=== PATIENT | female | born 1985 | race Caucasian/White ===

== ENCOUNTER 2023-06-09 16:44 | Observation (INO) | payer BC, SELFPAY ==
[2023-06-09] VITALS (22 sets, daily range): BP systolic 106–126; BP diastolic 53–85; PULSE 61–89; RESP 13–23; TEMP 36.8–37; O2SAT 98–100; BMI 36.3
--- NOTE | 2023-06-09 17:01 | EX.ED.DYSGE1 ---
HPI History of Present Illness Chief Complaint: Complaint Informant: patient Narrative Narrative: Patient presents with concerns for UTI. She had some slight burning with urination today and has an achy/burning sensation over the suprapubic area. She is approximately 6 weeks . She has not seen OB yet, but is scheduled to see [facility] group. Her blood type is a positive. She denies any bleeding with her urine today. Patient states earlier in her she had some spotting. She did have lab work done including 2 quant's that dick appropriately. She has not yet had any imaging studies. She is G1, P0, Ab0. PFSH PFS Medical History no medical history no medical history Allergy/AdvReac Type Severity Reaction Status Date / Time No Known Allergies Allergy Verified 06/09/23 16:45 Social History Smoking Status: Never smoker ROS ROS ED Constitutional Constitutional ED: Denies chills or fever(s) Eyes Eyes: Denies discharge from eye(s) ENT ENT ED: Denies discharge from eye(s), rhinorrhea or sore throat Cardiovascular Cardiovascular: Denies chest pain Respiratory/Chest Respiratory/Chest: Denies cough or dyspnea Gastrointestinal Gastrointestinal: Reports abdominal pain; Denies diarrhea, nausea or vomiting Genitourinary Genitourinary ED: Reports dysuria Musculoskeletal Musculoskeletal: Denies back pain or extremity pain Integumentary Denies Abrasions or rash Neurologic Neurologic: Denies headache(s) or weakness Psychiatric Psychiatric: Denies anxiety or depression Allergic/Immunologic Allergic/Immunologic ED: Denies lip swelling or urticaria EXAM Physical Exam Const Vital Signs: 06/09/23 16:45 Temperature 98.3 F Temperature Source Temporal Pulse Rate 72 Respiratory Rate 14 Blood Pressure 126/85 H Blood Pressure Mean 98 Pulse Ox 100 Oxygen Delivery Method Room Air Positive well nourished and well developed General Appearance ED: well developed HEENT Reports moist mucous membranes Eyes EOMs intact bilaterally Chest Wall inspection of chest normal and palpation of chest normal Resp normal respiratory effort and clear to auscultation bilaterally Cardio regular rate and regular rhythm GI GI Narrative: Very mild suprapubic tenderness. No guarding or rebound. Palpation: soft Extremity normal to inspection Neuro oriented x3 Motor Exam: strength 5/5 throughout Psych mental status grossly normal Skin no rashes or lesions noted MDM MDM MDM Narrative Medical decision making narrative: Urinalysis sent for evidence of infection. As patient does have suprapubic pain and has not had imaging, we will obtain an hCG quant to ensure appropriate progression. History & Record Review Discussion w/independent historian: Patient Lab Data Attestation: I reviewed the patient's lab results. Labs: Laboratory Results - last 24 hr 06/09/23 06/09/23 06/09/23 16:11 16:50 19:39 WBC 11.9 H RBC 3.73 L Hgb 10.5 L Hct 32.2 L MCV 86.3 MCH 28.2 MCHC 32.6 RDW Std Deviation 40.0 RDW Coeff of Addy 12.7 Plt Count 275 MPV 9.9 Immature Gran % (Auto) 0.300 Neut % (Auto) 85.0 H Lymph % (Auto) 9.0 L Johnson % (Auto) 5.2 Eos % (Auto) 0.1 Baso % (Auto) 0.4 Absolute Neuts (auto) 10.1 H Absolute Lymphs (auto) 1.07 Nucleated RBC % 0 PT 14.1 INR 1.1 APTT 22.1 L Sodium 134 L Potassium 3.5 Chloride 103 Carbon Dioxide 26.0 Anion Gap 5 BUN 8 Creatinine 0.60 Estim Creat Clear Calc 156.38 Est GFR (MDRD) Af Amer 146 Est GFR (MDRD) Non-Af 121 BUN/Creatinine Ratio 13.4 Glucose 101 Calcium 8.9 HCG, Quant 69926 H Urine Color Yellow Urine Clarity Clear Urine pH 5.0 Ur Specific [place] 1.030 Urine Protein 30 H Urine Glucose (UA) Normal Urine Ketones 150 A* Urine Occult Blood 10 H Urine Nitrite Negative Urine Bilirubin Negative Urine Urobilinogen 1 H Ur Leukocyte Esterase Negative Urine RBC 0-5 SEEN Urine WBC 0 SEEN Ur Squamous Epith Cells 0-5 SEEN Urine Bacteria 1+ Urine Mucus 1+ Treatment and Re-Evaluation :: Urinalysis did not show significant infection with only 1+ bacteria, 0-5 epithelial cells, and 0 white cells. 150 ketones are noted. Quant is 30,925. Patient was sent for ultrasound. We received a phone call from the [facility] stating the patient had a live ectopic in the right fallopian tube. Free fluid is noted. IV line is established. Test results are discussed with patient and at bedside. Additional lab work is drawn. Patient did have blood work for this performed at [facility], ordered by NURSE STAFF INDUSTRIAL but has not seen a provider yet. In light of this I did go ahead and speak with [facility] on-call, Christiana Skinner who then contacted the physician. Dr. Westfall presented to the emergency room to see the patient. Plan will be go to OR for surgical treatment. Discharge Plan Triage Chief Complaint: Complaint ED Provider: Haylie Mena Dx/Rx/DC Orders Clinical Impression: Ectopic Primary Care Provider: Wen Tanner NP Referrals: Wen Tanner STEAM ROOM ATTENDANT, STEAM ROOM ATTENDANT-C [Primary Care Provider] - Disposition Disposition: Acute Care Hospital [facility]
[2023-06-09 17:18] LABS: White Blood Cells 0 SEEN /hpf (0-5)
[2023-06-09 17:31] LABS: Color, Urine Yellow (Yellow); Glucose, Dipstick Normal (Normal); Leukocyte Esterase-Dipstick Negative /ul (Negative); Nitrite-Dipstick Negative (Negative); Occult Blood-Urine 10 /ul (Negative); Protein-Dipstick 30 mg/dl (Negative); Urine Bilirubin Dipstick Negative (Negative); Urine Clarity Clear (Clear); Urine Urobilinogen 1 mg/dl (Normal)
[2023-06-09 17:52] LABS: Ketone-Dipstick 150 mg/dl (Negative)
[2023-06-09 18:05] LABS: Bacteria 1+ /hpf (None Seen); Mucous, Urine 1+ /hpf (<or=2+)
[2023-06-09 18:06] LABS: Red Blood Cells-Urine 0-5 SEEN /hpf (0-5); Squamous Epithelial Cells - UA 0-5 SEEN /hpf (5-10)
[2023-06-09 18:21] LABS: hCG Titer Quant., Serum 30925 mIU/mL (1-3)
--- NOTE | 2023-06-09 18:34 | US_ITS ---
STUDY: FIRST TRIMESTER OBSTETRICAL ULTRASOUND REASON FOR EXAM: Female, 38 years old pelvic pain LMP: 04/21/2023. TECHNIQUE: Transvaginal TECHNICAL QUALITY: Adequate. PRIOR ULTRASOUND: None. FINDINGS: There is no demonstrated intrauterine gestational sac. There is no demonstrated intrauterine embryo ( pole). The estimated gestation age (EGA) by LMP is 7 weeks, 0 days. The estimated date of delivery (GENNA) by LMP is 01/26/2024. The estimated gestation age (EGA) by US is 6 weeks, 2 days. The estimated date of delivery (GENNA) by US is 01/31/2024. The uterus measures 8.3 x 5.3 x 4.5 cm. There is no demonstrated uterine fibroid. The cervix is closed. The right ovary measures 4.4 x 2.6 x 3.4 cm. At the level of the right adnexa there is a complex mass measuring 4.4 x 3.2 x 2.3 cm with cystic component, and questionable pole with a detected cardiac activity 157 BPM concerning for ectopic . The pole measures 0.43 cm corresponding to 6 weeks and 2 days. There is a yolk sac measuring 2.7 mm. There is moderate to large amount of complex free fluid within the posterior cul-de-sac and surrounding the bilateral adnexal region concerning for hemorrhagic fluid. The left ovary measures 4.4 x 3.2 x 2.3 cm. There is a left adnexal complex mass or debris which may represent hemorrhagic fluid, a mass cannot be excluded. There is no fluid in the cul de sac. US/Transvaginal w/Preg US IMPRESSION: No intrauterine visualized, with large amount of complex free fluid containing echogenic debris concerning for hemorrhagic fluid. High concern for right adnexal ectopic , with detected cardiac activity of 157 BPM and possible pole, with suggested gestational age of 6 weeks and 2 days . Recommend follow-up with ORNAMENTAL MACHINE OPERATOR consultation. N.B. : The above Results were Read Back by Marilia Segura MD to Haylie Mena MD, and understanding confirmed on 06/09/2023 20:48:43 (ET). Electronically Signed: Marilia Segura MD at 20:35 EST ,
[2023-06-09] MEDS: 0.9% Normal Saline (1000mL) 1,000 ML 150 ML IV (19:46)
[2023-06-09 20:00] LABS: Absolute Lymphocyte Count 1.07 X10^3/uL (0.83-4.51); Absolute Neutrophil Count 10.1 X10^3/uL (2.0-7.7); Basophil# 0.05 X10^3/uL; Basophil% 0.4 % (0-1); Eosinophil# 0.01 X10^3/uL; Eosinophils% 0.1 % (0-5); Hematocrit 32.2 % (37-47); Hemoglobin 10.5 g/dL (12.0-15.0); Lymphocyte # 1.07 X10^3/ul (0.83-4.51); Mean Corp Hgb Conc 32.6 g/dL (32-36); Mean Corpuscular Hgb 28.2 pg (27.0-32.0); Mean Corpuscular Volume 86.3 fL (81-99); Mean Platelet Vol. 9.9 fl (6.2-12.0); Monocyte# 0.62 X10^3/uL; Monocyte% 5.2 % (0-10); NRBC Flagged by Analyzer 0 % (0-5); Platelet Count 275 K/mm3 (150-450); RBC Distribution Width CV 12.7 % (11.6-14.6); Red Blood Count 3.73 M/mm3 (4.2-5.4); White Blood Count 11.9 K/mm3 (4.4-11.0)
[2023-06-09 20:07] LABS: International Normalized Ratio 1.1; Prothrombin Time (Protime)PT. 14.1 SECONDS (11.7-14.9)
[2023-06-09 20:08] LABS: Partial Thromboplast Time 22.1 Seconds (24.1-36.2)
[2023-06-09 20:11] LABS: Anion Gap 5 (5-15); BUN 8 mg/dL (7-18); BUN/Creat Ratio 13.4 RATIO (10-20); Calcium,Total 8.9 mg/dL (8.5-10.1); Chloride 103 mmol/L (98-107); EST Glomerular Filtration Rate 121 mL/min (>60); Est Glom Filt Rate - Afr Amer 146 mL/min (>60); Estimated Creatinine Clearance 156.38 ml/min; Glucose 101 mg/dL (74-106); Potassium 3.5 mmol/L (3.5-5.1); Sodium Level 134 mmol/L (136-145)
[2023-06-09] MEDS: Ondansetron 4 MG/2 ML Vial IV (20:43)
[2023-06-09] MEDS: Morphine 4 MG/ML Syringe IV ×2 (20:43→23:21)
--- NOTE | 2023-06-09 20:51 | PCM.HP.OB ---
HPI - General General Date of Admission: 06/09/23 Date of Service: 06/09/23 Chief Complaint: ectopic HPI Narrative SALLY CULLEN, is a 38 F who presents to the ER with abdominal pain, lightheadedness, dizziness, shoulder pain, nausea. No vaginal bleeding. LMP 04/21/23. Has not yet been seen in our office. Had 2 HCG quants with appropriate rise. PFSH PFSH Medical History no medical history Allergy/AdvReac Type Severity Reaction Status Date / Time No Known Allergies Allergy Verified 06/09/23 16:45 Social History Smoking Status: Never smoker Vital Signs Vital Signs Vital Signs: 06/09/23 16:45 Temperature 98.3 F Temperature Source Temporal Pulse Rate 72 Respiratory Rate 14 Blood Pressure 126/85 H Blood Pressure Mean 98 Pulse Ox 100 Oxygen Delivery Method Room Air Weight Weight: 225 lb 1.471 oz Body Mass Index (BMI) 36.3 Physical Exam Const alert and no apparent distress HEENT normocephalic Resp normal respiratory effort GI soft to palpation and non-distended GI Narrative: Diffuse tenderness Labs Labs Labs: Hct 32.2 % (37-47) L Hgb 10.5 g/dL (12.0-15.0) L Obstetrics Ultrasound Assessment & Plan (1) Ectopic : PLAN: Pelvic ultrasound images reviewed with concern for right adnexal ectopic and blood in pelvis. Discussed r/b/a diagnostic laparoscopy, evacuation of hemoperitoneum, removal of ectopic , possible salpingectomy, possible oophorectomy. Consent signed and patient desires to proceed. VSS but anemic in the ER. Unsure of her baseline. Discussed recommend observation overnight and likely discharge in AM.
--- NOTE | 2023-06-09 22:15 | FAL_PTH ---
PATHOLOGY RESULTS PATIENT: SALLY CULLEN LOC: MS3 U#:[id number] AGE/SX: 38/F ROOM: WI312 RE06/10/[address]: Dr. Codie Westfall DO : 1985 BED: 1 DIS: 06/10/2023 SPEC #: [id number] RECD: 06/12/23 09:05 STATUS: PATRICK RENNY #: [id number] RUBENS: 06/09/23 22:[address]: Codie Westfall DEPT: SURGICAL PATHOLOGY RECD BY: Ebony Gatica ENTERED: 06/12/23 10:14 SP TYPE: ECTOPIC OTHR DR: ROSALBA Chen Tissues: ECTOPIC PREG Procedures: Surgery Specimen Level IV HEADER OPERATION: Diagnostic laparoscopy, evacuation hemoperitoneum, right salpingectomy PRE-OP DIAGNOSIS: Ectopic TISSUE SUBMITTED: Ectopic and right fallopian tube MICROSCOPIC DIAGNOSIS Ectopic and right fallopian tube, right salpingectomy: Inflamed fallopian tube with decidua and immature chorionic villi (ectopic ). IVAN:donal 06/13/2023 MICROSCOPIC DESCRIPTION Slides are reviewed. GROSS DESCRIPTION Received in fixative is one container labeled with the patient's name and designated ectopic and right fallopian tube. The specimen consists of a fallopian tube measuring 5.5 cm in length and up to 1.5 cm in diameter. The fimbrial end is identified. Focally, the fallopian tubes appear to be disrupted. Section reveals focally edematous cut surfaces. Also present in the container are multiple fragments of hemorrhagic tissue mixed with blood clots measuring in aggregate 5.0 x 5.0 x 2.0 cm. No tissue is identified. Nursery Laborer sections are submitted in six cassettes as follows: 1-3 - fallopian tube, entirely submitted, 4-7 - detached fragments of hemorrhagic tissue with blood clots. / IVAN:donal 06/12/2023 TC:5 CPT: 77617
--- NOTE | 2023-06-09 23:09 | ED.RN ---
ATTEMPTED TO CALL REPORT TO OR, NO ANSWER AT THIS TIME
[2023-06-10] VITALS (11 sets, daily range): BP systolic 97–161; BP diastolic 43–135; PULSE 63–87; RESP 14–16; TEMP 36.6–37.7; O2SAT 97–100; BMI 36.3
[2023-06-10] MEDS: Bupivacaine Mpf 0.5% 30 ML VIAL (00:25)
--- NOTE | 2023-06-10 01:50 | PCM.OPRPT ---
Problems Associated Problem List Diagnoses (1) Ectopic : Report of Operation Date of Procedure: 06/10/23 Pre-Operative Diagnosis: Ectopic Post-Operative Diagnosis: As above Surgery/Procedure Performed:: Diagnostic laparoscopy, evacuation of hemoperitoneum, right salpingectomy with removal of ectopic Description of Surgical Findings:: Ectopic noted in the right fallopian tube. The right fallopian tube was ruptured and actively bleeding. There was 1 L of blood and blood clot in the abdomen and pelvis. The right ovary was normal-appearing. There were adhesions of the right fallopian tube to the pelvic cul-de-sac. The right fallopian tube was minimally adhered to the right ovary. Bowel adhesions were noted in the left adnexa, and the left fallopian tube and ovary were unable to be visualized. The uterus was normal-appearing. The pelvic cul-de-sac was normal-appearing. Surgeon: Codie Westfall shopper: Rinku TARIQ Type of Anesthesia: General Special Medications: None Specimen's removed: Right fallopian tube with ectopic Drains: None Estimated Blood Loss (mL): < 50 Fluids Replaced: See anesthesia record Description of Procedure: The patient was taken to the operating room and under general anesthesia she was prepped and draped in the dorsal lithotomy position using yellowfin stirrups. From below, a weighted speculum was placed in the vagina to expose the cervix. A single-tooth tenaculum was placed on the anterior lip of the cervix. A uterine manipulator was placed. The weighted speculum and single-tooth tenaculum were removed. Gloves were changed and attention was turned to the abdominal portion of the procedure. Local was infiltrated at all port sites. An infraumbilical incision was made to accommodate a 5 mm port. The 5 mm port was placed under direct visualization using the laparoscope. Once confirmed intraperitoneal, CO2 insufflation was initiated. Blood and blood clot were present within the abdomen and pelvis with no injury noted upon entry. The patient was placed in Trendelenburg. A right lateral 5 mm port was placed. A left lateral 12 millimeter port was placed. The pelvis was irrigated and the blood and blood clot was evacuated. The bowel was noted to be a adhered to the left adnexa, the left pelvic sidewall, and the pelvic cul-de-sac. The left fallopian tube and ovary were unable to be visualized. The uterus was normal-appearing. The pelvic cul-de-sac was normal-appearing. The right fallopian tube was ruptured and actively bleeding within the ectopic present within the tube. The right fallopian tube was adhered to the right ovary and pelvic cul-de-sac. The right ovary was normal-appearing. The adhesions of the right fallopian tube to the pelvic cul-de-sac were transected using the LigaSure device. The right fallopian tube was then elevated out of the pelvis and followed out to the fimbriated end. The LigaSure device was used to serially clamp, cauterize, and transect along the mesosalpinx hugging adjacent to the tube until reaching level of the cornua. Once at the level of the cornua the fallopian tube was transected. An Endo Catch bag was used to remove the right fallopian tube and ectopic . The right fallopian tube and ectopic were sent to pathology for review. The pelvis was then irrigated. Shweta was placed over the right adnexa. Hemostasis was noted. The Jorge Jacobs was used to close the fascia of the 12 mm port. All ports were then removed and the abdomen was exsufflated. The skin was closed with 4 Monocryl and glue. The uterine manipulator was removed and a vaginal sweep was performed. Instrument, sponge, needle counts were correct. The patient was taken to the recovery room in stable condition. Technical Support Representative Rinku TARIQ was present for the entire case and assisted with draping the patient, removal of the ectopic , and closure. Grafts/Implants Used: None Procedure Start Time: 00:20 Procedure Stop Time: 01:24 Complications None Admit VTE Documentation VTE Present on Admission: No VTE Mechan Device Prophylaxis: SCD's
[2023-06-10] MEDS: Ketorolac 30 MG/ML Syringe IM (01:58)
--- NOTE | 2023-06-10 02:00 | PCM.DC ---
Discharge Instructions Diet Discharge Diet: No restrictions Activity Discharge Activity: May Drive (Once you are no longer taking pain medication, and once you feel you can slam on a brake or turn a steering wheel sharply) and May Shower (once you are more than 24 hours out from surgery) May resume sexual activity in: 1 week (no soaking in water and nothing in the vagina for 1 week) Ice area for (Minutes): 15 Weight Bearing Status: Weight bearing as tolerated Lifting Restrictions: Nothing heavier than 10-15 pounds for 1 week Dressing / Incision Call your doctor if your incision/area has: Continuous Slow Oozing, Sudden Increased Bleeding, Increased Pain/ Swelling, Increased Redness, Foul Smelling Discharge and Swelling at the incision site Call your doctor if you observe: Fever of 101 or Higher, Coldness, Increased Pain, Numbness or Tingling, Change in Color, Inability to urinate, Inability to have a bowel movement, Using more than 1 pad per hour, Shortness of breath, Dizziness, Fainting spells, Swelling in the ankles, Chest pain, Increased palpitations (irregular heartbeat), Calf discomfort and Uncontrolled pain Suture Line Care: Avoid Pulling/Pushing and Avoid Pinching/Bending Remove Dressing in: leave until fall off Cleanse incision/area with: Soap & Water Follow Up Care Please Follow Up With: Codie Westfall DO When: 1-2 weeks post op Test Results: Test results from this visit will be discussed in further detail at your follow-up appointment, if applicable. Discharge Plan Admission Admit Date/Time: 06/09/23 20:45 Primary Reason for Your Visit: surgery Attending Provider: Codie Westfall Primary Care Provider: Wen Tanner NP Instructions Patient Instructions: Pelvic Laparoscopy Discharge Orders/Prescriptions Prescriptions: New ibuprofen 600 mg tablet 600 mg PO Q6H PRN (Reason: pain) Qty: 30 0RF oxycodone-acetaminophen [Percocet] 5-325 mg tablet 1 tab PO Q6H PRN (Reason: pain) 7 Days Qty: 10 0RF Continued docosahexaenoic acid [ DHA] PO Referrals / Follow Up: Wen Tanner NP, ROTARY SHEAR OPERATOR-C [Primary Care Provider] - Disposition Disposition (needs filled in before D/C Order can be placed): Home, Self Care
[2023-06-10] MEDS: oxyCODONE 5 MG Tablet PO ×2 (02:30→10:50)
[2023-06-10] MEDS: 0.9% Normal Saline (1000mL) 1,000 ML 150 ML IV ×2 (02:32→09:14)
[2023-06-10] MEDS: Acetaminophen 500 MG Tablet 1000 MG PO ×2 (06:30→13:59)
[2023-06-10] MEDS: Ondansetron ODT 4 MG Tablet PO (06:40)
[2023-06-10 07:28] LABS: Hematocrit 24.2 % (37-47); Hemoglobin 7.8 g/dL (12.0-15.0); Mean Corp Hgb Conc 32.2 g/dL (32-36); Mean Corpuscular Hgb 27.8 pg (27.0-32.0); Mean Corpuscular Volume 86.1 fL (81-99); Mean Platelet Vol. 10.1 fl (6.2-12.0); Platelet Count 235 K/mm3 (150-450); RBC Distribution Width CV 12.7 % (11.6-14.6); RBC Distribution Width SD 40.2 fl (35.1-43.9); Red Blood Count 2.81 M/mm3 (4.2-5.4); White Blood Count 10.3 K/mm3 (4.4-11.0)
--- NOTE | 2023-06-10 11:39 | PCM.PN.OB ---
Subjective Subjective Pt doing ok. Feels improved this afternoon as compared to this morning. She was lightheaded and dizzy when she ambulated first thing this morning. She just went to the restroom and did not feel lightheaded and dizzy. She was able to void ~700 mL of urine. Maria L PO without nausea or vomiting. No fevers, chills, leg pain. Pain is controlled with oxycodone. She overall feels she is getting better. Objective Data Objective Data Vital Signs: Vital Signs Temp Pulse Resp BP Pulse Ox O2 Del Method 98 F 81 16 105/55 L 99 Room Air 06/10/23 06:27 06/10/23 06:27 06/10/23 06:27 06/10/23 06:27 06/10/23 08:14 06/10/23 08:14 Oxygen Delivery Method Room Air Weight: 225 lb Body Mass Index (BMI) 36.3 Intake & Output: Intake and Output for Last 24 Hours 06/08/23 06/09/23 06/10/23 23:59 23:59 23:59 Intake Total 1999 / 1999 Output Total 150 / 150 Balance 1850 / 1850 Lab / Micro Data 06/10/23 06:12 06/09/23 19:39 Labs: Laboratory Results - last 24 hr 06/09/23 16:11: HCG, Quant [id number] H 06/09/23 16:50: Urine Color Yellow, Urine Clarity Clear, Urine pH 5.0, Ur Specific [place] 1.030, Urine Protein 30 H, Urine Glucose (UA) Normal, Urine Ketones 150 A*, Urine Occult Blood 10 H, Urine Nitrite Negative, Urine Bilirubin Negative, Urine Urobilinogen 1 H, Ur Leukocyte Esterase Negative, Urine RBC 0-5 SEEN, Urine WBC 0 SEEN, Ur Squamous Epith Cells 0-5 SEEN, Urine Bacteria 1+, Urine Mucus 1+ 06/09/23 19:37: Antibody Screen NEGATIVE 06/09/23 19:39: WBC 11.9 H, RBC 3.73 L, Hgb 10.5 L, Hct 32.2 L, MCV 86.3, MCH 28.2, MCHC 32.6, RDW Std Deviation 40.0, RDW Coeff of Addy 12.7, Plt Count 275, MPV 9.9, Immature Gran % (Auto) 0.300, Neut % (Auto) 85.0 H, Lymph % (Auto) 9.0 L, [place] % (Auto) 5.2, Eos % (Auto) 0.1, Baso % (Auto) 0.4, Absolute Neuts (auto) 10.1 H, Absolute Lymphs (auto) 1.07, Nucleated RBC % 0, PT 14.1, INR 1.1, APTT 22.1 L, Sodium 134 L, Potassium 3.5, Chloride 103, Carbon Dioxide 26.0, Anion Gap 5, BUN 8, Creatinine 0.60, Estim Creat Clear Calc 156.38, Est GFR (MDRD) Af Amer 146, Est GFR (MDRD) Non-Af 121, BUN/Creatinine Ratio 13.4, Glucose 101, Calcium 8.9 06/10/23 06:12: WBC 10.3, RBC 2.81 L, Hgb 7.8 L, Hct 24.2 L, MCV 86.1, MCH 27.8, MCHC 32.2, RDW Std Deviation 40.2, RDW Coeff of Addy 12.7, Plt Count 235, MPV 10.1 Micro: Microbiology 06/09/23 16:50 Urine, Clean Catch Urine Culture - Preliminary Culture exhibits no growth. Radiography Diagnostic Testing: Radiology Impression Obstetrics Ultrasound 06/09/23 18:34 IMPRESSION: No intrauterine visualized, with large amount of complex free fluid containing echogenic debris concerning for hemorrhagic fluid. High concern for right adnexal ectopic , with detected cardiac activity of 157 BPM and possible pole, with suggested gestational age of 6 weeks and 2 days . Recommend follow-up with EMERGENCY MEDICAL TECHNICIAN/DRIVER consultation. N.B. : The above Results were Read Back by Marilia Segura MD to Haylie Mena MD, and understanding confirmed on 06/09/2023 20:48:43 (ET). Electronically Signed: Marilia Segura MD at 20:35 EST , Physical Exam Const alert and no apparent distress General Appearance: comfortable HEENT normocephalic Resp normal respiratory effort GI soft to palpation and non-distended GI Narrative: Minimal diffuse tenderness. No rebounding, no guarding, no rigidity. Incisions are c/d/i Extremity normal to inspection and no calf tenderness Assessment & Plan (1) Ectopic : PLAN: Discussed surgery findings with patient and risk of ectopic in the future. Discussed concern given pelvic adhesions noted at the time of surgery that the left fallopian tube may not be patent, and risk of another ectopic. She reports a large left ovarian cyst as a child, but no prior pelvic infections or surgeries. (2) Post-operative state: PLAN: POD#1 today. Ambulating better this afternoon. Voiding improved. Encouraged PO hydration. Tolerating PO. Pain controlled with pain medication. VSS and abdomen non acute. Will need follow up in the office in 1 week and instructed her to message or call the office. (3) Acute blood loss anemia: PLAN: She denies symptoms of anemia at this time. Hgb to be rechecked 6 hours from last. Discussed with patient if Hgb < 7 recommend blood transfusion and discussed r/b/a of a transfusion. Discussed if Hgb > 7 but symptoms of anemia, recommend blood transfusion. If Hgb > 7 and no symptoms of anemia, recommend IV iron.
[2023-06-10 12:08] LABS: Hematocrit 22.4 % (37-47); Hemoglobin 7.3 g/dL (12.0-15.0)
[2023-06-10] MEDS: Sodium Ferric Gluconat/Sucrose 250 MG in 0.9% Normal Saline (250mL Bag) 250 ML 135 MG IV (13:58)
== END 2023-06-10 16:50 | disposition home or self-care (01) ==
LOC: ED 20:45 → SDC 21:35 → ED 22:56 → MS3 06-10 01:50
PROVIDERS: Admitting Provider Obstetrics & Gynecology; Emergency Provider Emergency Medicine; PCP Nurse Practitioner Family; Visit Provider Obstetrics & Gynecology
PROC: 10T24ZZ Resection of Products of Conception, Ectopic, Percutaneous Endoscopic Approach (ICD-10-PCS; CPT 59150; principal; 2023-06-09 22:00)
DX: O00.101 Right tubal pregnancy without intrauterine pregnancy (principal); Z3A.01 Less than 8 weeks gestation of pregnancy; D62 Acute posthemorrhagic anemia
CPT/HCPCS: 59151; 00840; 36415; 76817; 80048; 81001; 84702; 85014; 85018; 85025; 85027; 85610; 85730; 86850; 86900; 86901; 87086; 88305; 96361; 96365; 96366; 96375; 96376; 97802; 99285; J7030; J7050; A4216; J2405; J2916

== ENCOUNTER → 2024-02-22 | Outpatient (CLI) | payer BC, SELFPAY ==
--- NOTE | 2024-02-22 10:19 | RAD_ITS ---
STUDY: HYSTEROSALPINGOGRAM. REASON FOR EXAM: Female, 39 years old. Encounter for procreative management FLUOROSCOPY TIME (if supplied): ( 34 seconds ) minutes/seconds. 23.85 mGy. 3 images were submitted. TECHNIQUE: The veterans rehabilitation counselor performed a hysterosalpingogram. Contrast was injected. COMPARISON: None. FINDINGS: The uterus was opacified. No abnormality is seen. The right fallopian tube is not visualized. There is visualization of the left fallopian tube although there is no free spill. RAD/Salpingogram IMPRESSION: Visualization of the left fallopian tube without free spill. Electronically Signed: Shai Lovell MD at 12:50 EDT ,
== END | disposition home or self-care (01) ==
PROVIDERS: PCP Nurse Practitioner Family; Referring Provider Obstetrics & Gynecology; Visit Provider Obstetrics & Gynecology
DX: Z31.9 Encounter for procreative management, unspecified (principal)
CPT/HCPCS: 58340; 74740; Q9967